=== PATIENT | female | born 1975 | race Caucasian/White ===

== ENCOUNTER 2016-09-01 18:37 | Emergency (ER) | payer OTHER ==
[~2016-09-01] VITALS: Ht 157.5 cm; Wt 54.4 kg
[~2016-09-01 18:37] MED LIST: BUPR100T4 PO; PHEN100C4 PO; RISP0.253 PO
[2016-09-01 18:44] VITALS: BP 145/77
--- NOTE | 2016-09-01 18:44 | NUR ---
Patient to ed from [facility]-in custody for okat to book. Patient is aa4. Appears in no apparent distres. Respiration even and unlabored. Skin is warm to touch and non diaphoretic. Pt is afebrile. vss.
--- NOTE | 2016-09-01 18:46 | NUR ---
seen and examined by Bella and MD burns
--- NOTE | 2016-09-01 18:49 | NUR ---
Patient okayed to book. vss. Discharged papers provided
== END 2016-09-01 18:53 | disposition home or self-care (01) ==
LOC: ER 18:39
DX: Z00.8 Encounter for other general examination (principal); B19.20 Unspecified viral hepatitis C without hepatic coma; G40.909 Epilepsy, unspecified, not intractable, without status epilepticus; F15.10 Other stimulant abuse, uncomplicated; F11.10 Opioid abuse, uncomplicated; F17.200 Nicotine dependence, unspecified, uncomplicated; Z88.8 Allergy status to other drugs, medicaments and biological substances
CPT/HCPCS: 99283; A4606; Z7610

== ENCOUNTER 2016-09-04 12:57 | Emergency (ER) | payer OTHER ==
[~2016-09-04] VITALS: Ht 157.5 cm; Wt 49.9 kg
--- NOTE | 2016-09-04 13:04 | NUR ---
PT [facility] FROM [facility] TO ER BED 14. C/O JAW PAIN S/P TOOK UNKNOWN AMMOUNT OF HALDOL WHILE AT [facility]. PT IS AWAKE. NO SOB. NO CHEST PAIN. AWAITING MD BARAJAS.
--- NOTE | 2016-09-04 13:13 | NUR ---
DR KEARNEY AT BEDSIDE FOR EVAL.
--- NOTE | 2016-09-04 13:17 | NUR ---
IV LINE STARTED BLOOD DRAWN AND SENT TO LAB.
[2016-09-04] MEDS ORDERED: diphenhydrAMINE HCL 50 MG/ML VIAL ONE (13:24)
[2016-09-04 13:25] LABS: BASOPHILS % (AUTO) 0.4 % (0.0-2.0); EOSINOPHILS % (AUTO) 0.4 % (0.0-6.0); HEMATOCRIT 43 % (33-45); HEMOGLOBIN 13.9 g/dL (11.5-14.8); LYMPHOCYTES # (AUTO) 1.4 /CMM (0.8-4.8); LYMPHOCYTES % (AUTO) 13.4 % (20.0-44.0); MEAN CORPUSCULAR HEMOGLOBIN 29 PG (26.0-33.0); MEAN CORPUSCULAR HGB CONC 33 g/dl (31.0-36.0); MEAN CORPUSCULAR VOLUME 89 fL (82-100); MONOCYTES # (AUTO) 0.5 /CMM (0.1-1.30); MONOCYTES % (AUTO) 5.1 % (2.0-12.0); NEUTROPHILS # (AUTO) 8.2 /CMM (1.8-8.9); NEUTROPHILS % (AUTO) 80.7 % (43.0-81.0); PLATELET COUNT (AUTO) 318 /CMM (150-450); WHITE BLOOD COUNT (AUTO) 10.1 K/uL (4.3-11.0)
[2016-09-04] MEDS ORDERED: diphenhydrAMINE HCL 50 MG/ML VIAL IV ONE (13:30)
[2016-09-04] MEDS ORDERED: IV NS 0.9% 1,000 ML BAG IV ONE (13:30)
[2016-09-04 13:34] LABS: CALCIUM, SERUM 8.8 mg/dL (8.5-10.1); CARBON DIOXIDE 30 mmol/L (21-32); CHLORIDE 106 mmol/L (98-107); CREATININE 0.7 mg/dL (0.6-1.3); GLUCOSE 90 mg/dL (74-106); POTASSIUM 3.9 mmol/L (3.5-5.1); SODIUM SERUM 143 mmol/L (136-145); UREA NITROGEN, BLOOD 11 mg/dL (7-18)
[2016-09-04 13:40] LABS: ACETAMINOPHEN 0 ug/ml (10-30); ALANINE AMINOTRANSFERASE 30 U/L (12-78); ALBUMIN 3.4 g/dL (3.4-5.0); ALCOHOL, BLOOD < 3 mg/dL (0-0); ALKALINE PHOSPHATASE 70 U/L (46-116); ASPARTATE AMINOTRANSFERASE 21 U/L (15-37); BILIRUBIN,DIRECT 0.1 mg/dL (0.0-0.2); BILIRUBIN,TOTAL 0.2 mg/dL (0.2-1.0); TOTAL PROTEIN, SERUM 7.2 g/dL (6.4-8.2)
[2016-09-04 14:10] LABS: APPEARANCE,URINE Clear (CLEAR); BILIRUBIN,URINE Negative (NEGATIVE); BLOOD, URINE Trace-intact Ery/uL (NEGATIVE); COLOR,URINE Yellow (YELLOW); KETONES,URINE Negative (NEGATIVE); LEUKOCYTE ESTERASE ,URINE Negative (NEGATIVE); NITRITE, URINE Negative (NEGATIVE); PROTEIN,URINE Negative (NEGATIVE); UGLUCOSE Negative (NEGATIVE); UROBILINOGEN,URINE 0.2 EU/dL (0.2)
--- NOTE | 2016-09-04 14:15 | NUR ---
PT STILL C/O JAW PAIN. ON MONITOR, DENIES CHEST PAIN. NO SOB. STABLE VITALS. WILL CONTINUE TO MONITOR.
[2016-09-04 14:31] LABS: BACTERIA,URINE Moderate /HPF (None Seen); SQUAMOUS EPITHELIAL CELL,UR Few /HPF (None Seen); WBC,URINE 0-2 /HPF (0-3)
--- NOTE | 2016-09-04 16:43 | NUR ---
PT IS AWAKE. MEDICALLY CLEARED FOR BOOKING. D/C TO PD IN STABLE CONDITION.
[2016-09-04 16:45] VITALS: BP 124/64
== END 2016-09-04 16:46 ==
LOC: ER 12:58
DX: F15.10 Other stimulant abuse, uncomplicated (principal); T43.4X5A Adverse effect of butyrophenone and thiothixene neuroleptics, initial encounter; B19.20 Unspecified viral hepatitis C without hepatic coma; F17.200 Nicotine dependence, unspecified, uncomplicated; Z88.8 Allergy status to other drugs, medicaments and biological substances; R82.99 Other abnormal findings in urine; Y92.89 Other specified places as the place of occurrence of the external cause
CPT/HCPCS: 36415; 80048-TC; 80076-TC; 80305; 81000-TC; 85025-TC; 87086-TC; A4606; G0480; J1200; J7030; Z7610

== ENCOUNTER 2018-08-05 15:23 | Emergency (ER) | payer OTHER ==
[~2018-08-05] VITALS: Ht 157.5 cm; Wt 52.2 kg
--- NOTE | 2018-08-05 15:30 | NUR ---
BIBRA 102 and [employer] for overdose, took about 20-30 of unknown pills patient states maybe haldol, abilify, thorazine. Patient a/ox4, no distress noted, respiration even and unlabored, no sob noted. Attached to the monitor.
--- NOTE | 2018-08-05 15:57 | NUR ---
SPOKE TO GOSIA AT POISON CONTROL. INFORMED US TO RUN LAPS TO R/O TOXICITY OF ETHANOL, TYLENNOL, ASPIRIN, URINE DRUG SCREEN, CMP, CBC, EKG, AND CONTINUOUS EMERGENCY MEDICINE. IF PT HAS SEIZURES GIVE BENZOS NEEDED. IF ANY PROLONGNATION IN EKG CALL POSION CONTROL BACK. CLOSELY MONITOR TEMP AND V/S
[2018-08-05] MEDS ORDERED: IV NS 0.9% 1,000 ML BAG IV ONE (16:00)
[2018-08-05 16:19] LABS: BASOPHILS % (AUTO) 0.3 % (0.0-2.0); EOSINOPHILS % (AUTO) 0.9 % (0.0-6.0); HEMATOCRIT 40 % (33-45); HEMOGLOBIN 12.7 g/dL (11.5-14.8); LYMPHOCYTES # (AUTO) 1.2 /CMM (0.8-4.8); LYMPHOCYTES % (AUTO) 16.5 % (20.0-44.0); MEAN CORPUSCULAR HGB CONC 31 g/dl (31.0-36.0); MEAN CORPUSCULAR VOLUME 91 fL (82-100); MONOCYTES # (AUTO) 0.4 /CMM (0.1-1.30); MONOCYTES % (AUTO) 6.3 % (2.0-12.0); NEUTROPHILS # (AUTO) 5.3 /CMM (1.8-8.9); RED BLOOD CELL COUNT(AUTO) 4.45 MIL/uL (4.0-5.2)
[2018-08-05 16:23] LABS: CALCIUM, SERUM 8.9 mg/dL (8.5-10.1); CARBON DIOXIDE 27 mmol/L (21-32); CHLORIDE 105 mmol/L (98-107); CREATININE 0.6 mg/dL (0.6-1.3); GLUCOSE 97 mg/dL (74-106); POTASSIUM 4.5 mmol/L (3.5-5.1); SODIUM SERUM 140 mmol/L (136-145); UREA NITROGEN, BLOOD 14 mg/dL (7-18)
[2018-08-05 16:30] LABS: ACETAMINOPHEN 0 ug/ml (10-30); ALANINE AMINOTRANSFERASE 54 U/L (12-78); ALBUMIN 3.1 g/dL (3.4-5.0); ALCOHOL, BLOOD < 3 mg/dL (0-0); ALKALINE PHOSPHATASE 68 U/L (46-116); ASPARTATE AMINOTRANSFERASE 39 U/L (15-37); BILIRUBIN,DIRECT 0.1 mg/dL (0.0-0.2); BILIRUBIN,TOTAL 0.2 mg/dL (0.2-1.0); SALICYLATE 1.3 mg/dL (2.8-20.0); TOTAL PROTEIN, SERUM 7.1 g/dL (6.4-8.2)
[2018-08-05 16:44] LABS: PLATELET COUNT (AUTO) 458 /CMM (150-450)
--- NOTE | 2018-08-05 16:47 | NUR ---
POISON CONTROL INFORMED US THAT THE PT NEEDS TO BE UNDER 6 HR OBSERVATION
--- NOTE | 2018-08-05 16:48 | NUR ---
Note undone in EDM - 08/05/18 at 1649 by ROMICHAEL BIBRA [address] and [employer] for overdose, took about 20-30 of unknown pills patient states maybe haldol, abilify, thorazine. Patient a/ox4, no distress noted, respiration even and unlabored, no sob noted. Attached to the monitor.
--- NOTE | 2018-08-05 17:21 | NUR ---
PATIENT ASSISTED TO RESTROOM. UA SAMPLE PROVIDED AND SENT TO LAB. PATIENT IN NAD, VSS.
[2018-08-05 17:22] LABS: APPEARANCE,URINE CLEAR (CLEAR); BILIRUBIN,URINE NEGATIVE (NEGATIVE); BLOOD, URINE NEGATIVE Ery/uL (NEGATIVE); COLOR,URINE YELLOW (YELLOW); KETONES,URINE NEGATIVE (NEGATIVE); LEUKOCYTE ESTERASE ,URINE NEGATIVE (NEGATIVE); NITRITE, URINE POSITIVE (NEGATIVE); PROTEIN,URINE NEGATIVE (NEGATIVE); UGLUCOSE NEGATIVE (NEGATIVE); UROBILINOGEN,URINE 0.2 EU/dL (0.2)
[2018-08-05 17:39] LABS: BACTERIA,URINE 3+ /HPF (None Seen); RBC,URINE 0-2 /HPF (0-2); SQUAMOUS EPITHELIAL CELL,UR 0-2 /HPF (None Seen); URINE AMORPHOUS PHOSPHATES Many /HPF (None Seen); WBC,URINE 0-2 /HPF (0-3)
[2018-08-05] MEDS ORDERED: phenytoin SODIUM IV 1,000 MG in IV NS 0.9% 100 ML IV ONE (18:57)
--- NOTE | 2018-08-05 19:20 | NUR ---
REC'D REPORT FROM WARNER MONTOYA FOR ERIKA
--- NOTE | 2018-08-05 19:29 | NUR ---
PATIENT IN STABLE CONDITION, DILANTIN INFUSING AT THIS TIME. ENDORSED TO SHAHRIAR MONTOYA.
--- NOTE | 2018-08-05 19:53 | NUR ---
PER PT REQUEST, PROVIDED PT WITH CRACKERS AND JUICE
--- NOTE | 2018-08-05 21:15 | NUR ---
PT MEDICALLY CLEARED FOR DISCHARGE/BOOKING. PT IN CUSTODY WITH [employer]. IV removed. Catheter intact and site benign. Pressure and 4x4 applied to site. No bleeding noted. Pt ambulatory with a steady gait
[2018-08-05 21:17] VITALS: BP 124/76
== END 2018-08-05 21:19 ==
LOC: ER 15:23
DX: T50.991A Poisoning by other drugs, medicaments and biological substances, accidental (unintentional), initial encounter (principal); F19.10 Other psychoactive substance abuse, uncomplicated; R82.71 Bacteriuria; F15.10 Other stimulant abuse, uncomplicated; F11.10 Opioid abuse, uncomplicated; F13.10 Sedative, hypnotic or anxiolytic abuse, uncomplicated; G40.909 Epilepsy, unspecified, not intractable, without status epilepticus; E86.0 Dehydration; F17.200 Nicotine dependence, unspecified, uncomplicated; Z88.8 Allergy status to other drugs, medicaments and biological substances; Z79.899 Other long term (current) drug therapy; Y92.89 Other specified places as the place of occurrence of the external cause
CPT/HCPCS: 36415; 80048; 80076; 80185; 80305; 80307; 80329; 81001; 85025; 87086; 93005; 96361; 96365; 99284; A6403; G0480; J1165; J7030 ×2; J7040; 81000-TC; 87186-TC

== ENCOUNTER 2021-06-01 14:05 | Emergency (ER) | payer OTHER ==
[~2021-06-01] VITALS: Ht 157.5 cm; Wt 48.5 kg
--- NOTE | 2021-06-01 14:12 | NUR ---
LUCÍA LAPDenisa FROM [facility] FOR HEAD INJURY. PER [employer], PT INTENTIONALLY BANGED HER HEAD BECAUSE SHE WANTED DRUGS. NO LOC. AAOX4, BREATHING EVEN AND UNLABORED.
[2021-06-01] MEDS ORDERED: PHENYTOIN EXTENDED RELEASE 100 MG CAPSULE PO ONE (16:00)
[2021-06-01] MEDS ORDERED: PHEN100C4 PO (16:01)
--- NOTE | 2021-06-01 16:40 | NUR ---
Patient discharged to home in stable condition. Written and verbal after care instructions given. Patient verbalizes understanding of instruction.
[2021-06-01 16:53] VITALS: BP 121/83
== END 2021-06-01 16:40 | disposition home or self-care (01) ==
LOC: ER 14:10
DX: S09.90XA Unspecified injury of head, initial encounter (principal); G40.909 Epilepsy, unspecified, not intractable, without status epilepticus; R89.2 Abnormal level of other drugs, medicaments and biological substances in specimens from other organs, systems and tissues; F17.200 Nicotine dependence, unspecified, uncomplicated; Z86.69 Personal history of other diseases of the nervous system and sense organs; Z86.79 Personal history of other diseases of the circulatory system; Z88.8 Allergy status to other drugs, medicaments and biological substances; Z79.899 Other long term (current) drug therapy; W22.8XXA Striking against or struck by other objects, initial encounter; Y93.89 Activity, other specified; Y92.89 Other specified places as the place of occurrence of the external cause; Y99.8 Other external cause status
CPT/HCPCS: 36415; 70450-TC; 80185-TC